=== PATIENT | female | born 1980 | race Caucasian/White ===

== ENCOUNTER 2024-06-15 13:47 | Observation (INO) | payer MEDICAID, OTHER, SELFPAY ==
--- NOTE | ~2024-06-15 | CT_ITS ---
EXAMINATION: CT HEAD WITHOUT CONTRAST CLINICAL INFORMATION: Question seizures COMPARISON: None available. TECHNIQUE: Contiguous axial imaging was performed from the skull base to vertex without intravenous administration of contrast. This CT examination was performed using dose optimization techniques as appropriate, variously including the following: *Automated exposure control *Adjustment of mA and/or kV according to patient size (this includes techniques or standardized protocols for targeted exams where dose is matched to indication/reason for exam; i.e. extremities or head) *Use of iterative reconstruction technique DLP: 618 mGy-cm FINDINGS: The ventricles and sulci are normal in size and configuration. No acute hemorrhage, mass effect or shift is evident. Palmer-white differentiation is maintained. In the posterior fossa, the brainstem, cerebellum and fourth ventricle image normally. The orbits and calvarium are intact. The paranasal sinuses and mastoid air cells are well pneumatized and clear. CT/CT head/brain wo IV con IMPRESSION: 1. Unremarkable noncontrast brain CT. No acute hemorrhage, mass effect or shift. Electronically signed by: Eduin Akers MD 06/15/2024 03:34 PM EDT
--- NOTE | ~2024-06-15 | MR_ITS ---
EXAMINATION: MR BRAIN WITHOUT CONTRAST CLINICAL INFORMATION: Loss of consciousness, possible new onset seizure COMPARISON: None. TECHNIQUE: MRI of the brain was obtained using routine sequences without contrast. FINDINGS: Multiple sequences are significantly motion degraded, particularly the coronal oblique imaging through the temporal lobes resulting in essentially nondiagnostic assessment of the hippocampi. No acute infarct. No acute intracranial hemorrhage or extra-axial fluid collection. The ventricles and sulci are normal in size and configuration without significant volume loss or hydrocephalus. Within limitations of significant motion artifact, there is a single punctate T2 FLAIR hyperintense focus in the left manzanares radiata. Otherwise no gross parenchymal signal abnormality. No mass lesion, mass effect, or herniation pattern. Normal intracranial arterial and dural venous sinus flow voids. Normal appearance of the midline structures. The orbits are grossly unremarkable. The paranasal sinuses and mastoids are well aerated. Normal marrow signal. MR/MR head/brain wo con IMPRESSION: No acute intracranial abnormality. Nondiagnostic assessment of the hippocampi due to significant motion artifact. Otherwise, no definite structural epileptogenic lesion within limitations of a significantly motion degraded 1.5 Amelia examination without high-resolution 3-D T1-weighted sequences. Electronically signed by: Norma Mcintosh MD 06/16/2024 05:04 PM EDT
[2024-06-15 13:54] VITALS: BP 140/79; BP 180/110; PULSE 110; PULSE 144; RESP 18; TEMP 37.4; O2SAT 96; BMI 26.6
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
--- NOTE | 2024-06-15 14:19 | ECG_ITS ---
Test Reason : HEART SCREENING Blood Pressure : / mmHG Vent. Rate : 092 BPM Atrial Rate : 092 BPM P-R Int : 148 ms QRS Dur : 078 ms QT Int : 392 ms P-R-T Axes : 046 023 028 degrees QTc Int : 484 ms Sinus rhythm with occasional Premature ventricular complexes Prolonged QT Abnormal ECG No previous ECGs available Referred By: Kim Keen Electronically Signed By:IDALIA CH
[2024-06-15 15:12] LABS: Basophils Percent Auto 0.4 % (0-2); Hematocrit 42.1 % (37.0-47.0); Hemoglobin 14.4 g/dl (12.0-16.0); Imm Gran Abs Auto 0.03 X10*3/uL (0.00-0.03); Imm Gran Pct Auto 0.3 % (0.0-0.4); Lymphocytes Absolute Auto 1.7 X10*3/uL (1.2-4.9); Lymphocytes Percent Auto 17.1 % (20-40); MANUAL DIFF FLAG NO; Mean Corpuscular HGB Conc 34.2 g/dl (31.0-35.0); Mean Corpuscular Hemoglobin 29.9 pg (27.0-33.0); Mean Corpuscular Volume 87.5 fL (80.0-98.0); Mean Platelet Volume 10.7 fL (9.4-12.3); Monocytes Absolute Auto 0.6 X10*3/uL (0.1-1.2); Monocytes Percent Auto 6.4 % (2-11); Neutrophils Absolute Auto 7.4 x10*3/uL (2.0-8.3); Neutrophils Percent Auto 75.8 % (45-73); Platelet Count 287 X10*3/uL (160-400); Red Blood Count 4.81 X10*6/uL (4.20-5.50); Red Cell Distribution Width 12.3 % (11.0-16.0); White Blood Count 9.8 X10*3/uL (4.8-10.8)
[2024-06-15 15:40] LABS: Alanine Aminotransferase 11 U/L (0-31); Albumin Level 4.5 g/dL (3.5-5.0); Alkaline Phosphatase 50 U/L (39-117); Anion Gap 12 (12-20); Aspartate Amino Transferase 12 U/L (5-31); Bilirubin Direct 0.2 mg/dL (0.0-0.5); Bilirubin Total 0.5 mg/dL (0.0-1.0); Blood Urea Nitrogen 8 mg/dL (9-16); Calcium 9.8 mg/dL (8.4-10.2); Carbon Dioxide 27 mmol/L (22-29); Chloride 103 mmol/L (96-108); Creatinine Clr Calc Pharmacy 97.4; Estimated Glomerular Filt Rate > 60; Ethanol < 10 mg/dL; Glucose Random 91 mg/dL (60-115); HCG Quantitative < 2 mIU/mL; Lipase 8 U/L (8-78); Potassium 3.4 mmol/L (3.3-5.1); Sodium 139 mmol/L (135-145)
[2024-06-15 15:44] LABS: Lactic Acid 2.5 mmol/L (0.5-2.0)
[2024-06-15 17:11] LABS: Reflex Lactate? Lactic Acid Added
--- NOTE | 2024-06-15 19:06 | PHA.MEDREC ---
Addendum entered by Simran Rai RPh 06/15/24 19:21: reviewed by [facility]. Original Note: Pharmacy Consult ? Medication Reconciliation Pharmacy has completed the medication reconciliation.
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
[2024-06-15 20:03] VITALS: BP 115/63; PULSE 78; RESP 16; TEMP 37.3; O2SAT 96
[2024-06-15] MEDS: Butalb/Acetamin/Caff 50/325/40 TABLET 1 TAB PO (21:05)
[2024-06-15 21:44] LABS: Erythrocyte Sedimentation Rate 7 MM/HR (0-20)
[2024-06-15 23:13] LABS: Amphetamine Screen Urine Not Detected (Not Detect); Barbiturates, Urine Not Detected (Not Detect); Benzodiazepines Screen Urine POSITIVE (Not Detect); Buprenorphine Scr Not Detected (Not Detect); Cannabinoid Screen Urine Not Detected (Not Detect); Cocaine Screen Urine Not Detected (Not Detect); Fentanyl, urine POSITIVE (Not Detect); Methadone Screen, Urine Not Detected (Not Detect); Opiate Screen Urine POSITIVE (Not Detect); Oxycodone Screen Urine Not Detected (Not Detect); Phencyclidine Screen Urine Not Detected (Not Detect)
[2024-06-16] VITALS (7 sets, daily range): BP systolic 110–139; BP diastolic 66–81; PULSE 55–69; RESP 10–18; TEMP 36.4–37.2; O2SAT 95–99
--- NOTE | 2024-06-16 | EEG_ITS ---
This is a 16-channel EEG with an EKG lead. The patient is reported awake and restless during the tracing. Background EEG rhythm is mixed theta-beta, 5 to 50 microvolt posteriorly lower amplitude fast anteriorly. Intermittently, left temporal area sharp wave complexes were noted. Photic stimulation does not produce any significant abnormality. Hyperventilation similarly was unremarkable. Cardiac lead did not produce any significant abnormality. IMPRESSION: Mildly abnormal EEG suggestive of left temporal irritability. MD AUSTIN Corona/MURRAY / [phone]
[2024-06-16 04:53] LABS: MANUAL DIFF FLAG NO
[2024-06-16 04:56] LABS: Basophils Absolute Auto 0.1 X10*3/uL (0.0-0.2); Basophils Percent Auto 0.7 % (0-2); Eosinophils Absolute Auto 0.1 X10*3/uL (0.0-0.4); Eosinophils Percent Auto 0.7 % (0-4); Hematocrit 41.9 % (37.0-47.0); Hemoglobin 14.1 g/dl (12.0-16.0); Imm Gran Abs Auto 0.03 X10*3/uL (0.00-0.03); Imm Gran Pct Auto 0.3 % (0.0-0.4); Lymphocytes Absolute Auto 2.5 X10*3/uL (1.2-4.9); Lymphocytes Percent Auto 28.1 % (20-40); Mean Corpuscular HGB Conc 33.7 g/dl (31.0-35.0); Mean Corpuscular Hemoglobin 29.3 pg (27.0-33.0); Mean Corpuscular Volume 86.9 fL (80.0-98.0); Mean Platelet Volume 10.6 fL (9.4-12.3); Monocytes Absolute Auto 0.8 X10*3/uL (0.1-1.2); Monocytes Percent Auto 8.7 % (2-11); Neutrophils Absolute Auto 5.4 x10*3/uL (2.0-8.3); Neutrophils Percent Auto 61.5 % (45-73); Platelet Count 272 X10*3/uL (160-400); Red Blood Count 4.82 X10*6/uL (4.20-5.50); Red Cell Distribution Width 12.2 % (11.0-16.0); White Blood Count 8.8 X10*3/uL (4.8-10.8)
[2024-06-16 05:11] LABS: Anion Gap 11 (12-20); Blood Urea Nitrogen 9 mg/dL (9-16); Calcium 9.7 mg/dL (8.4-10.2); Carbon Dioxide 29 mmol/L (22-29); Chloride 104 mmol/L (96-108); Creatinine Clr Calc Pharmacy 97.4; Estimated Glomerular Filt Rate > 60; Glucose Random 108 mg/dL (60-115); Potassium 3.3 mmol/L (3.3-5.1); Sodium 141 mmol/L (135-145)
--- NOTE | 2024-06-16 10:36 | MHC.CM.PN ---
Attempted to meet with patient in regards to discharge planning. Patient currently at a test. No family present. Will attempt to meet again. Continue to monitor for d/c needs.
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
[2024-06-16] MEDS: methADONE HCl 20 MG/2 ML ORAL.CONC PO (11:39)
--- NOTE | 2024-06-16 11:47 | PC.NURSE ---
patient returned from procedures, medicated w/ 20mg methadone. patient has no IV access, refusing IV access at this time.
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
--- NOTE | 2024-06-16 13:19 | MHC.CM.PN ---
Attempted to meet with patient in regards to discharge planning. Provider currently with patient. Will attempt to meet again. Continue to monitor for d/c needs.
--- NOTE | 2024-06-16 14:17 | HO.ADDICT_ITS ---
History of Present Illness Date of Service: 06/16/2024 Chief Complaint: ?seizure Reason for Consult: OUD Sources of Information: patient interviewed and chart reviewed HPI Narrative: Patient is a 44 year old female medically admitted with AMS/loss of conciousness Consult requested as patient reported opiate use at time of admission Seen by law firm receptionist this morning and mild withdrawal sx reported and noted--methadone 20mg administered with positive effect Seen by t/w in follow up in room 2 of main ED awaiting transfer to [facility] floor Patient awake, alert, laying in bed watching TV on her phone Legs restless during entirety of interview and blanket pulled up to her neck due to chills . She reports using 2 bundles of heroin/fentanyl IN daily Denies any history of IVDU Denies cocaine use Denies alcohol use States that she was previously engaged in treatment for OUD with methadone at [facility] in [place] Discontinued treatment approx a year ago and she states her dose was btwn 110- 120mg Denies any history of ATS Denies any other MOUD treatment Denies any history of overdose Medical Evaluation Reviewed: Yes Review of Systems Constitutional: Reports as per HPI, Reports body ache(s), Reports chills and Reports malaise Gastrointestinal: Denies loose stools and Denies nausea Musculoskeletal: Reports arthralgias Diagnostics Vital Signs (24Hr): Vital Signs - 24 hr 06/15/24 20:03 06/16/24 00:39 06/16/24 04:37 Temperature 99.2 F 98.9 F 98.4 F Pulse Rate 78 68 66 Respiratory Rate 16 16 16 Blood Pressure 115/63 118/81 139/68 Pulse Oximetry 96 98 95 Oxygen Delivery Method Room Air Room Air Room Air 06/16/24 08:53 06/16/24 12:17 Temperature Pulse Rate 69 65 Respiratory Rate 14 10 L Blood Pressure 130/81 110/66 Pulse Oximetry 97 96 Oxygen Delivery Method Room Air Room Air BMI result Body Mass Index 26.6 Labs 06/16/24 04:38 06/16/24 04:38 Labs: Laboratory Results - last 48 hr 06/15/24 06/15/24 06/15/24 15:04 19:20 22:17 WBC 9.8 RBC 4.81 Hgb 14.4 Hct 42.1 MCV 87.5 MCH 29.9 MCHC 34.2 RDW 12.3 Plt Count 287 MPV 10.7 Immature Gran % (Auto) 0.3 Neut % (Auto) 75.8 H Lymph % (Auto) 17.1 L Metcalfe % (Auto) 6.4 Eos % (Auto) 0.0 Baso % (Auto) 0.4 Lymph # (Auto) 1.7 Metcalfe # (Auto) 0.6 Eos # (Auto) 0.0 Baso # (Auto) 0.0 Abs Immat Gran (auto) 0.03 Absolute Neuts (auto) 7.4 Absolute Nucleated RBC 0.000 Nucleated RBC % (auto) 0.0 ESR 7 Sodium 139 Potassium 3.4 Chloride 103 Carbon Dioxide 27 Anion Gap 12 BUN 8 L Creatinine 0.78 Estim Creat Clear Calc 97.4 Estimated GFR > 60 Random Glucose 91 Lactic Acid 2.5 H* Calcium 9.8 Total Bilirubin 0.5 Direct Bilirubin 0.2 AST 12 ALT 11 Alkaline Phosphatase 50 Total Creatine Kinase 139 Total Protein 8.0 Albumin 4.5 Lipase 8 Beta HCG, Quant < 2 Urine Opiates Screen POSITIVE H Ur Buprenorphine Scrn Not Detected Ur Oxycodone Screen Not Detected Urine Methadone Screen Not Detected Urine Fentanyl Screen POSITIVE H Ur Barbiturates Screen Not Detected Ur Phencyclidine Scrn Not Detected Ur Amphetamines Screen Not Detected U Benzodiazepines Scrn POSITIVE H Urine Cocaine Screen Not Detected U Marijuana (THC) Screen Not Detected Ethyl Alcohol < 10 06/16/24 04:38 WBC 8.8 RBC 4.82 Hgb 14.1 Hct 41.9 MCV 86.9 MCH 29.3 MCHC 33.7 RDW 12.2 Plt Count 272 MPV 10.6 Immature Gran % (Auto) 0.3 Neut % (Auto) 61.5 Lymph % (Auto) 28.1 Metcalfe % (Auto) 8.7 Eos % (Auto) 0.7 Baso % (Auto) 0.7 Lymph # (Auto) 2.5 Metcalfe # (Auto) 0.8 Eos # (Auto) 0.1 Baso # (Auto) 0.1 Abs Immat Gran (auto) 0.03 Absolute Neuts (auto) 5.4 Absolute Nucleated RBC 0.000 Nucleated RBC % (auto) 0.0 ESR Sodium 141 Potassium 3.3 Chloride 104 Carbon Dioxide 29 Anion Gap 11 L BUN 9 Creatinine 0.78 Estim Creat Clear Calc 97.4 Estimated GFR > 60 Random Glucose 108 Lactic Acid Calcium 9.7 Total Bilirubin Direct Bilirubin AST ALT Alkaline Phosphatase Total Creatine Kinase Total Protein Albumin Lipase Beta HCG, Quant Urine Opiates Screen Ur Buprenorphine Scrn Ur Oxycodone Screen Urine Methadone Screen Urine Fentanyl Screen Ur Barbiturates Screen Ur Phencyclidine Scrn Ur Amphetamines Screen U Benzodiazepines Scrn Urine Cocaine Screen U Marijuana (THC) Screen Ethyl Alcohol Imaging Radiology Impressions: ITS Impressions Head CT 06/15/24 14:52 IMPRESSION: 1. Unremarkable noncontrast brain CT. No acute hemorrhage, mass effect or shift. Electronically signed by: Eduin Akers MD 06/15/2024 03:34 PM EDT Mental Status Exam Mental Status Exam Patient Appearance: Appropriate Level of Consciousness: Awake, Appropriate and Alert Patient Behavior: Appropriate and Talkative Mood Description: Calm Affect Description: Calm Speech Pattern: Clear Medications Medications Current Medications Acetaminophen (Acetaminophen 325 Mg Tablet) 650 mg PO Q6H PRN PRN Reason: Pain, Mild (Pain Scale 1-3), fever or headache Calcium Carbonate (Calcium Carbonate 750 Mg Tab.Chew) 750 mg PO Q4H PRN PRN Reason: Heartburn Enoxaparin Sodium (Enoxaparin Sodium 40 Mg/0.4 Ml Syringe) 40 mg SUBCUT Q24H [facility] Last Admin: 06/15/24 21:05 Dose: Not Given Magnesium Hydroxide (Milk Of Magnesia 30 Ml Oral.Susp) 30 ml PO DAILY PRN PRN Reason: Constipation Melatonin (Melatonin 3 Mg Tablet) 6 mg PO BEDTIME PRN PRN Reason: Insomnia Nicotine (Nicotine 7 Mg Patch.Td24) 7 mg TRANSDERMA DAILY PRN PRN Reason: Nicotine Cravings Sodium Chloride (0.9 % Sodium Chloride Flush 3 Ml Syringe) 3 ml IVFLUSH QSHIFT [facility] Last Admin: 06/16/24 11:41 Dose: Not Given Allergies Allergies Allergy/AdvReac Type Severity Reaction Status Date / Time No Known Allergies Allergy Verified 06/15/24 13:56 Assessment & Plan Assessment & Plan (1) Opioid use disorder: Status: Acute Code(s): F11.90 - Opioid use, unspecified, uncomplicated Assessment and Plan: * additional 10mg methadone now (total of 30mg today) * can have 10mg overnight if needed * methadone 45mg in AM * tizanidine * HIV and hepatitis labs ordered given risk * law firm receptionist to send referral to [facility] OTP * take home narcan at discharge Total time managing care of this patient today _35___ minutes. PMFSH Past Medical History Medical History Heroin use Social History Social History Patient Tobacco Use Status: Never used Tobacco Smoked in Last 30 Days: Yes Substance Use Type: Heroin Substance Use Frequency: Daily Substance Use Frequency Other:: 2 years Advance Directives: No Advance Directives Information Provided: Yes Do you have a plan to hurt others: No Plan Nutrition Risks: No Nutritional Risk Patient : No
--- NOTE | 2024-06-16 14:36 | P.PNIM_ITS ---
Subjective Subjective Date of Service: 06/16/24 Interval History: Seen in follow-up for loss of consciousness,? Seizures Interval history: No further seizure activity or loss of consciousness. Vital signs stable. Denies any vision changes, headaches, lightheadedness, weakness/paresthesias, shortness of breath, palpitations, chest pain Review of Systems Review of Systems: Yes all other systems are reviewed and are negative Physical Exam 2 Vital Signs: Vital Signs: Last Vital Signs Temp 98.4 F 06/16/24 04:37 Pulse 65 06/16/24 12:17 Resp 10 L 06/16/24 12:17 BP 110/66 06/16/24 12:17 Pulse Ox 96 06/16/24 12:17 O2 Del Method Room Air 06/16/24 12:17 BMI result Body Mass Index 26.6 Constitutional - Awake and Alert, No apparent distress Eyes - PERRLA, EOMI Cardiovascular - S1S2, RRR, No edema Respiratory - Normal lung expansion, Normal respiratory effort, No respiratory distress, CTA bilaterally Gastrointestinal - NT / ND; +BS; No rebound or guarding Extremities - no calf tenderness bilaterally, no swelling Skin - Warm/Dry Neurological - Alert & oriented x3, CN II-XII in tact Psychological - Appropriate affect Objective Data Active Medications Acetaminophen (Acetaminophen 325 Mg Tablet) 650 mg PO Q6H PRN PRN Reason: Pain, Mild (Pain Scale 1-3), fever or headache Calcium Carbonate (Calcium Carbonate 750 Mg Tab.Chew) 750 mg PO Q4H PRN PRN Reason: Heartburn Enoxaparin Sodium (Enoxaparin Sodium 40 Mg/0.4 Ml Syringe) 40 mg SUBCUT Q24H [facility] Last Admin: 06/15/24 21:05 Dose: Not Given Documented By: VAISLE Non-Admin Reason: Patient Refused Magnesium Hydroxide (Milk Of Magnesia 30 Ml Oral.Susp) 30 ml PO DAILY PRN PRN Reason: Constipation Melatonin (Melatonin 3 Mg Tablet) 6 mg PO BEDTIME PRN PRN Reason: Insomnia Nicotine (Nicotine 7 Mg Patch.Td24) 7 mg TRANSDERMA DAILY PRN PRN Reason: Nicotine Cravings Sodium Chloride (0.9 % Sodium Chloride Flush 3 Ml Syringe) 3 ml IVFLUSH QSHIFT [facility] Last Admin: 06/16/24 11:41 Dose: Not Given Documented By: BOLIVAR Non-Admin Reason: See Note Labs 06/16/24 04:38 06/16/24 04:38 Labs: Laboratory Results - last 24 hr 06/15/24 06/15/24 06/15/24 15:04 19:20 22:17 MCV 87.5 MCH 29.9 MCHC 34.2 RDW 12.3 Plt Count 287 MPV 10.7 Immature Gran % (Auto) 0.3 Neut % (Auto) 75.8 H Lymph % (Auto) 17.1 L Pickett % (Auto) 6.4 Eos % (Auto) 0.0 Baso % (Auto) 0.4 Lymph # (Auto) 1.7 Pickett # (Auto) 0.6 Eos # (Auto) 0.0 Baso # (Auto) 0.0 Abs Immat Gran (auto) 0.03 Absolute Neuts (auto) 7.4 Absolute Nucleated RBC 0.000 Nucleated RBC % (auto) 0.0 ESR 7 Anion Gap 12 Estim Creat Clear Calc 97.4 Estimated GFR > 60 Random Glucose 91 Lactic Acid 2.5 H* Calcium 9.8 Total Bilirubin 0.5 Direct Bilirubin 0.2 AST 12 ALT 11 Alkaline Phosphatase 50 Total Creatine Kinase 139 Total Protein 8.0 Albumin 4.5 Lipase 8 Beta HCG, Quant < 2 Urine Opiates Screen POSITIVE H Ur Buprenorphine Scrn Not Detected Ur Oxycodone Screen Not Detected Urine Methadone Screen Not Detected Urine Fentanyl Screen POSITIVE H Ur Barbiturates Screen Not Detected Ur Phencyclidine Scrn Not Detected Ur Amphetamines Screen Not Detected U Benzodiazepines Scrn POSITIVE H Urine Cocaine Screen Not Detected U Marijuana (THC) Screen Not Detected Ethyl Alcohol < 10 06/16/24 04:38 MCV 86.9 MCH 29.3 MCHC 33.7 RDW 12.2 Plt Count 272 MPV 10.6 Immature Gran % (Auto) 0.3 Neut % (Auto) 61.5 Lymph % (Auto) 28.1 Pickett % (Auto) 8.7 Eos % (Auto) 0.7 Baso % (Auto) 0.7 Lymph # (Auto) 2.5 Pickett # (Auto) 0.8 Eos # (Auto) 0.1 Baso # (Auto) 0.1 Abs Immat Gran (auto) 0.03 Absolute Neuts (auto) 5.4 Absolute Nucleated RBC 0.000 Nucleated RBC % (auto) 0.0 ESR Anion Gap 11 L Estim Creat Clear Calc 97.4 Estimated GFR > 60 Random Glucose 108 Lactic Acid Calcium 9.7 Total Bilirubin Direct Bilirubin AST ALT Alkaline Phosphatase Total Creatine Kinase Total Protein Albumin Lipase Beta HCG, Quant Urine Opiates Screen Ur Buprenorphine Scrn Ur Oxycodone Screen Urine Methadone Screen Urine Fentanyl Screen Ur Barbiturates Screen Ur Phencyclidine Scrn Ur Amphetamines Screen U Benzodiazepines Scrn Urine Cocaine Screen U Marijuana (THC) Screen Ethyl Alcohol Assessment and Plan (1) Opioid use disorder: Status: Acute (2) Loss of consciousness: Status: Acute Plan 44 year old female with history of inh heroin use (denies hx IVDA- last use this am) who is a current 5 cigarette per day smoker to be observed for loss of consciousness #Loss of consciousness- etiology unclear -per neurology, likely r/t drug use as Inh heroin laced with fenatyl/benzos and boyfriend who used same drugs had adverse reaction as well -however, EEG does show soem evidence of seizure activity -Check MRI brain -per neuro will likely NOT require residential antiepilectics. Per neuro reports patient reportedly refused meds anyway however, agreeable on my exam. Hold on initiating meds until MRI results -Per neuro, check EVI, tick panel, ESR -seizure precautions -observe on med tele -neuro input appreciated -await MRI results, pt may not be able to drive for 6 months #Acute headache -head ct negative for acute intracranial abn, no focal neuro deficits -trial fioricet #Heroin abuse -UDS shows heroin, fentanyl, and benzos -addiction med input appreciated. Started on methadone. Will need ongoing outpt follow up #Cigarette smoker -cessation counseling. Patch prn for NRT dvt prophylaxis- lovenox full code Quality Stroke Does the patient have a stroke diagnosis?: No VTE Prior VTE?: No VTE Risk Level:: Medical - moderate - high VTE Device Contraindication: Treatment Not Indicated VTE Drug Contraindication: N/A - Med Ordered
[2024-06-16 15:25] LABS: HIV AB/AG Nonreactive (Nonreactive); HIV Num 1 0.04 S/CO (0.00-0.99); ~HepC Num1 0.25 S/CO (0.00-0.79); ~Hepatitis C Antibody Nonreactive (Nonreactive)
[2024-06-16] MEDS: TiZANidine HCL 4 MG TABLET PO (16:18)
[2024-06-16] MEDS: methADONE HCl 20 MG/2 ML ORAL.CONC 10 MG PO (16:19)
--- NOTE | 2024-06-16 16:21 | PC.NURSE ---
continues to rest quietly in room, no obvious signs/symptoms of distress noted. medicated per the MAR. patient continues to refuse IV - provider is aware
[2024-06-16 19:33] LABS: Lyme Abs Screen <0.90 index
[2024-06-17] MEDS: Melatonin 3 MG TABLET 6 MG PO (00:52)
[2024-06-17 03:27] VITALS: BP 133/91; PULSE 68; RESP 18; TEMP 36.9; O2SAT 98
[2024-06-17] MEDS: methADONE HCl 20 MG/2 ML ORAL.CONC 45 MG PO (05:43)
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
[2024-06-17 07:31] VITALS: BP 127/82; PULSE 58; RESP 18; TEMP 36.8; O2SAT 100
--- NOTE | 2024-06-17 08:40 | MHC.CM.PN ---
Per systems integrator/Liana, [facility](where Liana is attempting to set Patient up with Methadone), indicated that Patient's [facility] is inactive and that the Health Safety Net Partial will not cover Substance Abuse Treatment; CM has referred Patient to [facility]. CM will follow.
--- NOTE | 2024-06-17 08:59 | MHC.CM.PN ---
CM met with Patient at bedside and addressed DAWN with her, providing Patient with the original and a copy has been placed on the chart. Patient lives in a 2 family house with her Boyfriend/Sebastián and she is functionally independent. Home/new Methadone from [facility] is the goal and CM has initiated and will follow for dc planning. Patient has no PCP; local PCP pamphlet will be given to Patient. Sebastián will transport to home.
--- NOTE | 2024-06-17 10:50 | MHC.RECOVRN ---
Met with pt to follow up after receiving 45 mg methadone this morning. Pts partner, Sebastián, present with pts permission. Pt sitting in bed, awake, alert, easily engages in conversation, reports feeling okay, better than yesterday. Reports feeling a little achy but I'm okay. Pt looking forward to discharge, aware she needs to meet with financial to set up [facility] prior to dc. Pt denies questions or concerns for t/w. Discussed with Lata Arias APRN.
[2024-06-17 11:07] VITALS: BP 132/69; PULSE 58; RESP 18; TEMP 36.9; O2SAT 97
[2024-06-17 11:14] LABS: Anti Nuclear Antibody Screen NEGATIVE (NEGATIVE)
--- NOTE | 2024-06-17 13:23 | MHC.CM.PN ---
Patient has been medically cleared for dc to home today, self care.Per [facility], Patient will be eligible for [facility] in about an hour; CM relayed this information to head banquet waitress, who has instructed Patient regarding new Methadone set up.
[2024-06-18 00:44] LABS: A. Phagocytphilium DNA,RT-PCR NOT DETECTED (NOT DETECTED); Babesia Microti DNA, RT-PCR NOT DETECTED (NOT DETECTED); Borrelia Miyamotoi,DNA RT-PCR NOT DETECTED (NOT DETECTED); E.Chaffeensis DNA RT-PCR NOT DETECTED (NOT DETECTED); Lyme(Borrelia ssp)DNA RT-PCR NOT DETECTED (NOT DETECTED)
== END 2024-06-17 13:27 | disposition home or self-care (01) ==
LOC: HO.ED 18:19 → HO.EDOVER 19:21 → HO.IMC 06-16 17:10
PROVIDERS: Nurse Practitioner Psychiatric/Mental Health; Admitting Provider Physician Assistant; Emergency Provider Emergency Medicine; Visit Provider Physician Assistant
DX: R56.9 Unspecified convulsions (principal); R55 Syncope and collapse; R41.82 Altered mental status, unspecified; R00.0 Tachycardia, unspecified; R94.01 Abnormal electroencephalogram [EEG]; R51.9 Headache, unspecified; F11.90 Opioid use, unspecified, uncomplicated; F17.200 Nicotine dependence, unspecified, uncomplicated
CPT/HCPCS: 36415; 70450; 70551; 80048; 80076; 80307; 82550; 83605; 83690; 84702; 85025; 85652; 86038; 86617; 86618; 86803; 87389; 87468; 87469; 87478; 87484; 87798; 93005; 95816; 99222; 99285

== ENCOUNTER → 2024-06-15 19:13 | Outpatient (BNV) | payer MEDICAID, SELFPAY | PROVIDERS: Admitting Provider Physician Assistant; Emergency Provider Emergency Medicine; Visit Provider Physician Assistant | DX: F11.19 Opioid abuse with unspecified opioid-induced disorder (principal); R56.9 Unspecified convulsions; R55 Syncope and collapse | CPT/HCPCS: 99223; 99232; 99239 ==

== ENCOUNTER → 2024-06-15 19:13 | Outpatient (BNV) | payer SELFPAY | PROVIDERS: Admitting Provider Physician Assistant; Emergency Provider Emergency Medicine; Visit Provider Psychiatry & Neurology Neurology | DX: R41.82 Altered mental status, unspecified (principal) | CPT/HCPCS: 99222 ==

== ENCOUNTER → 2024-06-15 19:13 | Outpatient (BNV) | payer SELFPAY | PROVIDERS: Admitting Provider Physician Assistant; Emergency Provider Emergency Medicine; Visit Provider Nurse Practitioner Psychiatric/Mental Health | DX: F11.90 Opioid use, unspecified, uncomplicated (principal) | CPT/HCPCS: 99232 ==